=== PATIENT | male | born 1955 | race Caucasian/White ===

== ENCOUNTER 2018-08-10 11:21 | Emergency (ER) | payer OTHER, MEDICARE ==
[2018-08-10] MEDS ORDERED: CEPHALEXIN 500 MG CAP PO ONE (11:53)
--- NOTE | 2018-08-10 11:54 | EDPHY ---
H & P Time Seen by Provider: 08/10/18 11:45 HPI/ROS: CHIEF COMPLAINT: Left 3rd and 4th digit router injury HISTORY OF PRESENT ILLNESS: 63-year-old [id number] male with up-to- date tetanus was using a router this morning accidentally sustained tissue injury to his left 3rd and 4th digit PHYSICAL EXAM (Prior to examination, patient consented to physical exam, hands were washed and my usual and customary physical exam procedures followed) 1) GENERAL: Well-developed, well-nourished, alert and oriented. Appears to be in no acute distress. 2) HEAD: Normocephalic 3) HEENT: sclera anicteric 4) LUNGS: Breathing comfortably. 5) MUSCULOSKELETAL:] Left 4th digit: FDP FDS function intact. On the middle phalanx palmar aspect patient has a 2 cm flap laceration with regular skin margins. Left 3rd digit: FDP dysfunction noted. 3 cm irregular skin margin laceration on the palmar aspect middle phalanx is. 7) NEUROLOGIC: Two-point discrimination intact to both affected digit Smoking Status: Never smoked Constitutional: Initial Vital Signs Temperature (C) 36.6 C 08/10/18 11:34 Heart Rate 67 08/10/18 11:34 Respiratory Rate 16 08/10/18 11:34 Blood Pressure 142/86 H 08/10/18 11:34 O2 Sat (%) 97 08/10/18 11:34 O2 Delivery Mode Room Air Allergies/Adverse Reactions: Penicillins Allergy (Verified 08/10/18 11:37) Home Medications: Medication Instructions Recorded Aspirin EC [Aspirin EC 325 mg (*)] 325 mg PO DAILY #30 tab 05/16/16 Multivitamin 05/16/16 Cephalexin [Keflex] 500 mg PO TID 7 Days cap 08/10/18 Crestor 08/10/18 MDM/Departure - MDM Imaging Results: Imaging Impressions Hand X-Ray 08/10/18 11:53 Impression: Soft tissue injury involving the third and fourth digits at the radial middle phalangeal levels, with punctate radiopacities present. Images reviewed myself Procedures: Procedure: Laceration repair. I explained the indications, risks and benefits for both laceration repair and anesthetic administration. Verbal consent was obtained from the patient. The laceration on the 3rd and 4th digits was anesthetized using 0.5% bupivicaine without epinephrine digital nerve block. After anesthetic administered the patient was observed for a period of time and had no apparent adverse effects. The wound was cleaned, prepped, draped in normal sterile fashion and explored to its base. No foreign body seen, no foreign bodies palpated. The 3rd digit wound was closed with 5 simple interrupted 5 O Prolene sutures, 3rd 4th digit closed with 3 simple interrupted 5 O Prolene sutures, gently reapproximating skin edges to service of biologic bandage. The wound repair was complex. The procedure was performed by myself. Patient has been informed that scarring will occur, although efforts have been made to minimize this. Procedure: Splint A volar Ortho Glass splint was applied by ER wiring technician in order to minimize stress on the laceration suture sites.. After application of the splint I returned and re-examined the patient. The splint was adequately immobilizing the joint and distal to the splint the patient's circulation and sensation were intact. Patient shows no signs of compartment syndrome. Was given orthopedic precautions. Medications Given: Discontinued Medications Cephalexin HCl (Keflex) 500 mg PO EDNOW ONE PRN Reason: Protocol Stop: 08/10/18 11:54 Last Admin: 08/10/18 12:06 Dose: 500 mg ED Course/Re-evaluation: 12:57 p.m.: Consultation with Hand surgery on-call Dr. Mauro Andrade at this time regarding the patient's possible flexor tendon injury and regular skin margins . He has been started on antibiotic therapy, he has been splinted. Today is Saturday with present states tomorrow. He will plan on following up with Dr. Mauro Andrade on Saturday as tomorrow is holiday. - Depart Disposition: Home, Routine, Self-Care Clinical Impression: Laceration of left middle finger Qualifiers: Encounter type: initial encounter Damage to nail status: without damage Foreign body presence: with foreign body Qualified Code(s): S61.223A - Laceration with foreign body of left middle finger without damage to nail, initial encounter Condition: Good Instructions: Laceration (ED), Care For Your Stitches (ED) Additional Instructions: Wear your splint at all times until you are cleared by the hand surgeon. Return to the ER if you develop redness, swelling, discharge, warmth to the wound, red streaks going up your arm, or any other symptoms that concern you. Prescriptions: Cephalexin [Keflex] 500 mg PO TID 7 Days cap Referrals: Mauro Andrade MD [Medical Doctor] - 08/12/18
[2018-08-10 14:06] VITALS: BP 132/82
== END 2018-08-10 14:05 | disposition home or self-care (01) ==
PROC: 0HQGXZZ Repair Left Hand Skin, External Approach (ICD-10-PCS; principal; 2018-08-10)
DX: S61.213A Laceration without foreign body of left middle finger without damage to nail, initial encounter (principal); S61.215A Laceration without foreign body of left ring finger without damage to nail, initial encounter; W26.8XXA Contact with other sharp object(s), not elsewhere classified, initial encounter; Y92.9 Unspecified place or not applicable; Y99.9 Unspecified external cause status; Y93.9 Activity, unspecified; Z88.0 Allergy status to penicillin